=== PATIENT | male | born 1990 | race African-American/Black ===

== ENCOUNTER 2017-10-15 00:13 | Inpatient (IN) | payer MEDICAID ==
[~2017-10-15] VITALS: Ht 175.3 cm; Wt 105.5 kg
[2017-10-15] MEDS ORDERED: MORP15 PO (00:45)
[2017-10-15] MEDS ORDERED: TRAZ-219 PO (00:45)
[2017-10-15] MEDS ORDERED: DSS100 PO (00:45)
[2017-10-15] MEDS ORDERED: PANT40TA25 PO (00:45)
[2017-10-15] MEDS ORDERED: TETR-58 PO (00:45)
[2017-10-15] MEDS ORDERED: MIRALAX PO (00:45)
[2017-10-15] MEDS ORDERED: GABA-533 PO (00:45)
[2017-10-15] MEDS ORDERED: DIVA-78 PO (00:45)
[2017-10-15] MEDS ORDERED: ASPI-989 PO (00:45)
[2017-10-15] MEDS ORDERED: DIPH25 PO (00:45)
[2017-10-15] MEDS ORDERED: SUCR1TAB PO (00:45)
[2017-10-15] MEDS ORDERED: CARV6 PO (00:45)
[2017-10-15] MEDS ORDERED: AUD NEB (00:45)
[2017-10-15] MEDS ORDERED: ONDA4 PO (00:45)
[2017-10-15] MEDS ORDERED: ACET1TAB12 PO (00:45)
[2017-10-15] MEDS ORDERED: ASPIRIN 81 MG CHEWABLE TABLET PO ONE (00:45)
[2017-10-15] MEDS ORDERED: WARF2 PO (00:45)
[2017-10-15] MEDS ORDERED: CLOP75 PO (00:45)
[2017-10-15] MEDS ORDERED: MELO-107 PO (00:45)
[2017-10-15] MEDS ORDERED: OLAN2.5T3 PO (00:45)
[2017-10-15] MEDS ORDERED: METF500T6 PO (00:45)
[2017-10-15] MEDS ORDERED: INSREG SQ (00:45)
[2017-10-15] MEDS ORDERED: CYCL10 PO (00:45)
[2017-10-15] MEDS ORDERED: DIAZ5 PO (00:45)
[2017-10-15] MEDS ORDERED: FERR-89 PO (00:45)
[2017-10-15] MEDS ORDERED: PRED20 PO (00:45)
[2017-10-15] MEDS ORDERED: ALBU8HFA IH (00:45)
[2017-10-15] MEDS ORDERED: COLC0.6T67 PO (00:45)
[2017-10-15 01:32] LABS: BASOPHILS % (AUTO) 0.4 % (0.0-2.0); EOSINOPHILS % (AUTO) 0 % (1.0-6.0); HEMATOCRIT 36.4 % (41-53); HEMOGLOBIN 11.6 g/dL (13.5-17.5); LYMPHOCYTES # (AUTO) 0.4 K/uL (1.0-4.8); LYMPHOCYTES % (AUTO) 4.7 % (22.0-44.0); MEAN CORPUSCULAR HEMOGLOBIN 22.6 pg (26.0-34.0); MEAN CORPUSCULAR HGB CONC 31.9 G/dL (31.0-37.0); MEAN CORPUSCULAR VOLUME 71 fL (80-100); MONOCYTES # (AUTO) 0.1 K/uL (0.1-1.0); MONOCYTES % (AUTO) 1.3 % (2.0-9.0); NEUTROPHILS # (AUTO) 7.8 K/uL (1.8-7.7); NEUTROPHILS % (AUTO) 93.6 % (40.0-70.0); PLATELET COUNT (AUTO) 332 K/uL (150-450); RED BLOOD CELL COUNT(AUTO) 5.14 MIL/uL (4.50-5.90); RED CELL DISTRIBUTION WIDTH 23.4 % (11.5-14.5)
[2017-10-15 01:41] LABS: ANION GAP 6 mmol/L (8-16); CALCIUM, TOTAL 9.1 mg/dL (8.8-10.5); CARBON DIOXIDE 28 mmol/L (22-29); CHLORIDE 103 mmol/L (98-107); CREATININE 0.93 mg/dL (0.60-1.30); GLOMERULAR FILTR. RATE CALC > 60 mL/min (>60); GLUCOSE,RANDOM 110 mg/dL (70-110); POTASSIUM 4.3 mmol/L (3.5-5.1); SODIUM SERUM 137 mmol/L (136-145); UREA NITROGEN, BLOOD 9 mg/dL (7-18)
[2017-10-15 01:42] LABS: PROTHROMBIN TIME 10.6 SEC (9.4-11.6)
[2017-10-15 01:47] LABS: ALANINE AMINOTRANSFERASE 32 U/L (12-78); ALKALINE PHOSPHATASE 75 U/L (46-116); ASPARTATE AMINOTRANSFERASE 13 U/L (15-37); BILIRUBIN,TOTAL 0.4 mg/dL (0.1-1.0); CREATINE KINASE, TOTAL 51 U/L (39-308); TOTAL PROTEIN, SERUM 7.7 g/dL (6.4-8.2)
[2017-10-15 01:54] LABS: B-TYPE NATRIURETIC PEPTIDE < 5 pg/mL (0-100)
[2017-10-15] MEDS ORDERED: MORPHINE SULFATE 4 MG/ML SYRINGE IVP ONE (02:30)
[2017-10-15] MEDS ORDERED: ONDANSETRON HCL 4 MG/2 ML VIAL IVP ONE (02:30)
[2017-10-15 02:48] LABS: APPEARANCE,URINE CLEAR (CLEAR); BILIRUBIN,URINE NEGATIVE (NEGATIVE); GLUCOSE, URINE (UA) NEGATIVE (NEGATIVE); KETONES,URINE NEGATIVE (NEGATIVE); LEUKOCYTE ESTERASE ,URINE NEGATIVE (NEGATIVE); NITRATE,URINE NEGATIVE (NEGATIVE); OCCULT BLOOD,URINE NEGATIVE (NEGATIVE); PH,URINE 7.5 (5.0-8.0); PROTEIN,URINE NEGATIVE (NEGATIVE); UROBILINOGEN,URINE 0.2 mg/dL (<=1.0)
[2017-10-15 02:52] LABS: AMPHET/METH SCREEN,URINE NEGATIVE (NEGATIVE); BARBITURATE SCREEN, URINE NEGATIVE (NEGATIVE); BENZODIAZEPINES SCREEN,URINE NEGATIVE (NEGATIVE); CANNABINOID SCREEN,URINE NEGATIVE (NEGATIVE); COCAINE SCREEN,URINE NEGATIVE (NEGATIVE); METHADONE SCREEN, URINE NEGATIVE (NEGATIVE); OPIATE SCREEN,URINE POSITIVE (NEGATIVE)
[2017-10-15 02:54] LABS: PHENCYCLIDINE SCREEN,URINE NEGATIVE (NEGATIVE)
[2017-10-15] MEDS ORDERED: 0.9% SODIUM CHLORIDE 10 ML SYRINGE IVP PRN (04:00)
[2017-10-15] MEDS ORDERED: ACETAMINOPHEN 325 MG TABLET PO PRN ×3 (04:00→07:30)
[2017-10-15] MEDS ORDERED: HYDROCODONE/ACETAMINOPHEN 5-325 MG TABLET PO PRN (04:00)
[2017-10-15] MEDS ORDERED: MORPHINE SULFATE 4 MG/ML SYRINGE IVP PRN (04:00)
[2017-10-15] MEDS ORDERED: ONDANSETRON HCL 4 MG/2 ML VIAL IVP PRN (04:00)
[2017-10-15] MEDS ORDERED: MAGNESIUM HYDROXIDE SUSPENSION 30 ML UDCUP PO PRN (07:30)
[2017-10-15] MEDS ORDERED: OxyCODONE HCL/ACETAMINOPHEN 5-325 MG TABLET PO PRN (07:30)
[2017-10-15 08:30] VITALS: BP 132/56
[2017-10-15] MEDS: DOCUSATE SODIUM 100 MG CAPSULE PO SCH ×2 (08:51→20:44)
[2017-10-15] MEDS: CARVEDILOL 6.25 MG TABLET PO SCH ×2 (08:51→20:44)
[2017-10-15] MEDS: PANTOPRAZOLE SODIUM 40 MG DR TABLET PO SCH (08:51)
[2017-10-15] MEDS: ASPIRIN 81 MG CHEWABLE TABLET PO SCH (08:52)
[2017-10-15] MEDS: MORPHINE SULFATE 4 MG/ML SYRINGE IVP PRN ×4 (08:56→22:47)
[2017-10-15 11:30] VITALS: BP 132/60
[2017-10-15 15:34] VITALS: BP 138/75
[2017-10-15 20:40] VITALS: BP 117/71
[2017-10-15] MEDS: ATORVASTATIN CALCIUM 20 MG TABLET PO SCH (20:44)
[2017-10-15] MEDS ORDERED: 0.9% SODIUM CHLORIDE 5 ML NEB SOLUTION NEB ONE (21:27)
[2017-10-15] MEDS: ALBUTEROL SULFATE 2.5 MG/0.5 ML NEB SOLUTION NEB PRN (21:30)
[2017-10-15 22:47] VITALS: BP 111/54
[2017-10-16] VITALS (8 sets, daily range): BP systolic 97–136; BP diastolic 44–76
[2017-10-16 07:59] LABS: BASOPHILS % (AUTO) 1.7 % (0.0-2.0); EOSINOPHILS % (AUTO) 1.5 % (1.0-6.0); LYMPHOCYTES # (AUTO) 1.4 K/uL (1.0-4.8); LYMPHOCYTES % (AUTO) 34.6 % (22.0-44.0); MEAN CORPUSCULAR HEMOGLOBIN 22.8 pg (26.0-34.0); MEAN CORPUSCULAR HGB CONC 32.2 G/dL (31.0-37.0); MEAN CORPUSCULAR VOLUME 71 fL (80-100); MONOCYTES # (AUTO) 0.4 K/uL (0.1-1.0); MONOCYTES % (AUTO) 10.3 % (2.0-9.0); NEUTROPHILS # (AUTO) 2.2 K/uL (1.8-7.7); NEUTROPHILS % (AUTO) 51.9 % (40.0-70.0); PLATELET COUNT (AUTO) 315 K/uL (150-450); RED BLOOD CELL COUNT(AUTO) 4.81 MIL/uL (4.50-5.90); RED CELL DISTRIBUTION WIDTH 22.7 % (11.5-14.5)
[2017-10-16 08:13] LABS: ALANINE AMINOTRANSFERASE 27 U/L (12-78); ALBUMIN 3.4 g/dL (3.4-5.0); ALKALINE PHOSPHATASE 65 U/L (46-116); ANION GAP 8 mmol/L (8-16); ASPARTATE AMINOTRANSFERASE 12 U/L (15-37); BILIRUBIN,TOTAL 0.3 mg/dL (0.1-1.0); CALCIUM, TOTAL 8.6 mg/dL (8.8-10.5); CARBON DIOXIDE 29 mmol/L (22-29); CHLORIDE 105 mmol/L (98-107); CREATININE 0.95 mg/dL (0.60-1.30); GLOMERULAR FILTR. RATE CALC > 60 mL/min (>60); GLUCOSE,RANDOM 91 mg/dL (70-110); POTASSIUM 3.6 mmol/L (3.5-5.1); SODIUM SERUM 142 mmol/L (136-145); TOTAL PROTEIN, SERUM 6.8 g/dL (6.4-8.2); UREA NITROGEN, BLOOD 12 mg/dL (7-18)
[2017-10-16] MEDS: MORPHINE SULFATE 4 MG/ML SYRINGE IVP PRN ×4 (08:40→23:55)
[2017-10-16] MEDS ORDERED: REGADENOSON 0.4 MG/5 ML PF SYRINGE IVP ONE ×2 (13:48→17:14)
[2017-10-16] MEDS ORDERED: SESTAMIBI TC99M/UD ISOTOPE 1 EA INJ INJ ONE ×2 (13:50→16:20)
[2017-10-16] MEDS ORDERED: AMINOPHYLLINE 25 MG/ML 10 ML VIAL IVP ONE (13:53)
[2017-10-16] MEDS: CARVEDILOL 6.25 MG TABLET PO SCH ×2 (14:26→19:45)
[2017-10-16] MEDS: PANTOPRAZOLE SODIUM 40 MG DR TABLET PO SCH (14:26)
[2017-10-16] MEDS: ASPIRIN 81 MG CHEWABLE TABLET PO SCH (14:26)
[2017-10-16] MEDS: DOCUSATE SODIUM 100 MG CAPSULE PO SCH ×2 (14:27→19:44)
[2017-10-16] MEDS ORDERED: MORP15T PO (15:55)
[2017-10-16] MEDS ORDERED: AMINOPHYLLINE 25 MG/ML 10 ML VIAL IV ONE (17:14)
[2017-10-16] MEDS: ATORVASTATIN CALCIUM 20 MG TABLET PO SCH (19:45)
[2017-10-16] MEDS ORDERED: 0.9% SODIUM CHLORIDE 5 ML NEB SOLUTION NEB ONE (20:29)
[2017-10-16] MEDS: ALBUTEROL SULFATE 2.5 MG/0.5 ML NEB SOLUTION NEB PRN (20:45)
[2017-10-17 00:06] VITALS: BP 107/73
[2017-10-17 06:13] VITALS: BP 121/76
[2017-10-17] MEDS: MORPHINE SULFATE 4 MG/ML SYRINGE IVP PRN ×3 (06:29→21:22)
[2017-10-17] MEDS: CARVEDILOL 6.25 MG TABLET PO SCH ×2 (07:44→21:14)
[2017-10-17] MEDS ORDERED: METOPROLOL SUCCINATE 50 MG ER TABLET PO ONE (07:45)
[2017-10-17 07:48] VITALS: BP 90/55
[2017-10-17] MEDS: ASPIRIN 81 MG CHEWABLE TABLET PO SCH (08:33)
[2017-10-17] MEDS: PANTOPRAZOLE SODIUM 40 MG DR TABLET PO SCH (08:33)
[2017-10-17] MEDS: DOCUSATE SODIUM 100 MG CAPSULE PO SCH ×2 (08:33→21:14)
[2017-10-17 11:26] VITALS: BP 119/61
[2017-10-17] MEDS ORDERED: ASPI-1182 PO (15:10)
[2017-10-17] MEDS: METOPROLOL TARTRATE 5 MG/5 ML VIAL IVP SCH ×3 (16:00→16:20)
[2017-10-17 19:35] VITALS: BP 134/61
[2017-10-17] MEDS: ATORVASTATIN CALCIUM 20 MG TABLET PO SCH (21:14)
[2017-10-18 06:09] VITALS: BP 99/66
[2017-10-18] MEDS: MORPHINE SULFATE 4 MG/ML SYRINGE IVP PRN (06:24)
[2017-10-18 06:31] LABS: BASOPHILS % (AUTO) 1.3 % (0.0-2.0); EOSINOPHILS % (AUTO) 2.3 % (1.0-6.0); HEMATOCRIT 33.3 % (41-53); HEMOGLOBIN 10.9 g/dL (13.5-17.5); LYMPHOCYTES # (AUTO) 1.2 K/uL (1.0-4.8); LYMPHOCYTES % (AUTO) 26.8 % (22.0-44.0); MEAN CORPUSCULAR HGB CONC 32.6 G/dL (31.0-37.0); MEAN CORPUSCULAR VOLUME 70 fL (80-100); MONOCYTES # (AUTO) 0.6 K/uL (0.1-1.0); MONOCYTES % (AUTO) 12.7 % (2.0-9.0); NEUTROPHILS # (AUTO) 2.5 K/uL (1.8-7.7); NEUTROPHILS % (AUTO) 56.9 % (40.0-70.0); PLATELET COUNT (AUTO) 340 K/uL (150-450); RED BLOOD CELL COUNT(AUTO) 4.74 MIL/uL (4.50-5.90); RED CELL DISTRIBUTION WIDTH 23.4 % (11.5-14.5)
[2017-10-18 06:58] LABS: ANION GAP 7 mmol/L (8-16); CARBON DIOXIDE 28 mmol/L (22-29); CHLORIDE 106 mmol/L (98-107); CREATININE 0.94 mg/dL (0.60-1.30); GLUCOSE,RANDOM 93 mg/dL (70-110); POTASSIUM 3.8 mmol/L (3.5-5.1); SODIUM SERUM 141 mmol/L (136-145); UREA NITROGEN, BLOOD 5 mg/dL (7-18)
[2017-10-18 06:59] LABS: ALANINE AMINOTRANSFERASE 25 U/L (12-78); ALBUMIN 3.5 g/dL (3.4-5.0); ALKALINE PHOSPHATASE 68 U/L (46-116); ASPARTATE AMINOTRANSFERASE 10 U/L (15-37); BILIRUBIN,TOTAL 0.5 mg/dL (0.1-1.0); CALCIUM, TOTAL 9.1 mg/dL (8.8-10.5); GLOMERULAR FILTR. RATE CALC > 60 mL/min (>60); TOTAL PROTEIN, SERUM 6.7 g/dL (6.4-8.2)
[2017-10-18 07:44] VITALS: BP 119/64
[2017-10-18] MEDS: PANTOPRAZOLE SODIUM 40 MG DR TABLET PO SCH (08:10)
[2017-10-18] MEDS: ASPIRIN 81 MG CHEWABLE TABLET PO SCH (08:10)
[2017-10-18] MEDS: CARVEDILOL 6.25 MG TABLET PO SCH (08:10)
[2017-10-18] MEDS: DOCUSATE SODIUM 100 MG CAPSULE PO SCH (08:10)
== END 2017-10-18 11:35 | disposition home or self-care (01) | DRG 198 ==
LOC: EMS 00:14 → 5S 05:18
PROVIDERS: ADMIT Internal Medicine; ATTEND Internal Medicine
PROC: 4A02XM4 Measurement of Cardiac Total Activity, External Approach (ICD-10-PCS; principal; 2017-10-16)
PROC: 3E033HZ Introduction of Radioactive Substance into Peripheral Vein, Percutaneous Approach (ICD-10-PCS; 2017-10-16)
DX: R07.89 Other chest pain (principal); I25.2 Old myocardial infarction; E11.42 Type 2 diabetes mellitus with diabetic polyneuropathy; K51.90 Ulcerative colitis, unspecified, without complications; E11.51 Type 2 diabetes mellitus with diabetic peripheral angiopathy without gangrene; Q21.1 Atrial septal defect; I11.0 Hypertensive heart disease with heart failure; I50.9 Heart failure, unspecified; I48.0 Paroxysmal atrial fibrillation; G25.81 Restless legs syndrome; D50.9 Iron deficiency anemia, unspecified; J45.909 Unspecified asthma, uncomplicated; M79.7 Fibromyalgia; G89.29 Other chronic pain; G47.419 Narcolepsy without cataplexy; F90.9 Attention-deficit hyperactivity disorder, unspecified type; E78.00 Pure hypercholesterolemia, unspecified; I25.10 Atherosclerotic heart disease of native coronary artery without angina pectoris; F45.9 Somatoform disorder, unspecified; F42.9 Obsessive-compulsive disorder, unspecified; F43.10 Post-traumatic stress disorder, unspecified; F41.8 Other specified anxiety disorders; K59.00 Constipation, unspecified; M06.9 Rheumatoid arthritis, unspecified; K21.9 Gastro-esophageal reflux disease without esophagitis; Z79.01 Long term (current) use of anticoagulants; Z79.82 Long term (current) use of aspirin; Z79.4 Long term (current) use of insulin; Z86.711 Personal history of pulmonary embolism; Z86.718 Personal history of other venous thrombosis and embolism; Z87.11 Personal history of peptic ulcer disease; Z82.49 Family history of ischemic heart disease and other diseases of the circulatory system; Z83.3 Family history of diabetes mellitus
CPT/HCPCS: 78452; 83735; 93005; 93017; 93306; 93880; 94640; 96374; 96375; 99285; A9500; J0280; J2270; J2405; J2785; J3490